=== PATIENT | male | born 1965 | race Hispanic/Latino ===

== ENCOUNTER → 2018-03-29 | Day surgery (SDC) | payer BC ==
[2018-03-12 13:06] VITALS: BMI 55.7
[~2018-03-29] MED LIST: Etomidate 20 mg/10ml Inj IV ONE; Lidocaine 1% Inj (20ml) ONE; Propofol 10 mg/ml Inj (20 ML) ONE; Sodium Chloride 0.9% 1,000 ML IV SCH
[2018-03-29 16:49] VITALS: BP 133/85; PULSE 89; RESP 15; TEMP 98; O2SAT 95
== END | disposition home or self-care (01) ==
LOC: ENDO 07:18
PROVIDERS: ATTEND Internal Medicine Gastroenterology
DX: K62.5 Hemorrhage of anus and rectum (principal); K57.30 Diverticulosis of large intestine without perforation or abscess without bleeding; K64.8 Other hemorrhoids
CPT/HCPCS: 45378; J2704; J3010; J7030; J7040